=== PATIENT | female | born 1970 | race Caucasian/White ===

== ENCOUNTER 2017-08-09 13:24 | Emergency (ER) | payer BC ==
[~2017-08-09] VITALS: Ht 167.6 cm; Wt 76.2 kg
[~2017-08-09 13:24] MED LIST: CIPR500T4 PO; CLIN150 PO; LACTGRA PO
[2017-08-09 13:56] VITALS: BP 137/65; PULSE 75; RESP 18; TEMP 98.2; O2SAT 98
[2017-08-09] MEDS ORDERED: LEXA10TA PO (15:25)
[2017-08-09] MEDS ORDERED: PRED10 PO (15:33)
[2017-08-09] MEDS ORDERED: BACT800T5 PO (15:33)
[2017-08-09] MEDS ORDERED: BENZ100 PO (15:33)
--- NOTE | 2017-08-09 15:35 | PD ---
HPI Chief Complaint: Cold / Flu Symptoms Time Seen by Provider: 15:26 Travel History International Travel<30 days: No Contact w/Intl Traveler<30days: No Traveled to known affect area: No History of Present Illness HPI 46-year-old female presents emergency department for evaluation of cough, congestion, and sore throat 4 days. Says that her sore throat is burning and she feels as if her ears are full. Says she is used Tylenol and DayQuil without significant improvement. She denies fever chills although she says she has had some sweats. Her cough has been nonproductive. Says she has had some bloody nasal discharge when blowing her nose. She denies shortness of breath or chest pain. She has not been able to see her primary care physician as her office is closed over the holidays. [facility] Past Medical History Anxiety: Yes Cancer: No Cardiovascular Problems: No Endocrine: No Immune Disorder: No Kidney Stones: Yes Musculoskeletal: No Neurologic: No Psychiatric: No Reproductive: No Respiratory: No Influenza Vaccination: No ?: Not Past Surgical History Gynecologic Surgery: Yes (TUBAL LIGATION (1996)) Other Surgery: Yes (BREAST AUGMENTATION) Social History Alcohol Use: Yes () Tobacco Use: No Substance Use: No Allergies-Medications (Allergen,Severity, Reaction): Coded Allergies: meperidine (Unverified Adverse Reaction, Severe, Nausea, "feels funny" , ) Reported Meds & Prescriptions Reported Meds & Active Scripts Active Bactrim DS (Sulfamethoxazole-Trimethoprim) 800-160 Mg Tab 1 Tab PO BID Tessalon Perles (Benzonatate) 100 Mg Cap 100 Mg PO TID PRN 5 Days Prednisone 10 Mg Tab 10 Mg PO DAILY 7 Days Reported Lexapro (Escitalopram Oxalate) 10 Mg Tab 10 Mg PO DAILY Review of Systems Except as stated in HPI: all other systems reviewed are Neg Physical Exam Narrative GENERAL: Well-developed well-nourished no apparent distress SKIN: Focused skin assessment warm/dry. HEAD: Atraumatic. Normocephalic. EYES: Pupils equal and round. No scleral icterus. No injection or drainage. ENT: No nasal bleeding or discharge. Mucous membranes pink and moist. NECK: Trachea midline. No JVD. No lymphadenopathy. No meningismus Tympanic membranes mild erythema R>L intact CARDIOVASCULAR: Regular rate and rhythm. No murmur appreciated. RESPIRATORY: No accessory muscle use. Clear to auscultation. Breath sounds equal bilaterally. No CVA tenderness MUSCULOSKELETAL: No obvious deformities. No clubbing. No cyanosis. No edema. NEUROLOGICAL: Awake and alert. No obvious cranial nerve deficits. Motor grossly within normal limits. Normal speech. PSYCHIATRIC: Appropriate mood and affect; insight and judgment normal. Data Data Last Documented VS Vital Signs Date Time Temp Pulse Resp B/P (MAP) Pulse Ox O2 Delivery O2 Flow Rate FiO2 08/09/17 13:56 98.2 75 18 137/65 (89) 98 Orders Orders Ed Discharge Order (08/09/17 15:43) MDM Medical Decision Making Medical Screen Exam Complete: Yes Emergency Medical Condition: Yes Differential Diagnosis influenza, URI, pneumonia, bronchitis, pneumonitis, bronchospasm, allergic rhinitis, allergic pharyngitis Narrative Course 46-year-old female presents emergency department for evaluation of cough, congestion, and sore throat 4 days. Says that her sore throat is burning and she feels as if her ears are full. Says she is used Tylenol and DayQuil without significant improvement. She denies fever chills although she says she has had some sweats. Her cough has been nonproductive. Says she has had some bloody nasal discharge when blowing her nose. She denies shortness of breath or chest pain. She has not been able to see her primary care physician as her office is closed over the holidays. Vital signs are stable. Physical exam findings consistent with pharyngitis allergic versus viral. Mild tenderness palpation of the paraspinous area. No obvious nasal discharge or exudate. Patient will be discharged prednisone and Tessalon Perles. Bactrim prescribed but advised not to take this medication for 2 days and only to take if her symptoms worsen. She states understanding and will comply. Diagnosis Primary Impression: Sinusitis Qualified Codes: J32.0 - Chronic maxillary sinusitis Additional Impression: Pharyngitis Qualified Codes: J02.9 - Acute pharyngitis, unspecified Referrals: Primary Care Physician Departure Forms: Tests/Procedures, Work Release Enter return to work date: August 11, 2017 Additional Instructions: DO NOT start Bactrim unless the prednisone does not reduce yours symptoms in 2 days. Take all medications as prescribed and as discussed. I do not believe you have a bacterial infection at this point. You may use a drop of honey and lemon in a cup of warm water to soothe your cough. (If you are greater than 1 year old ) Ensure good hydration and a nutritious diet. Note that viral infection symptoms may last for several weeks if you have a viral illness. Follow up with your primary physician within 2-3 days. Return to the ED for worsening or persistent symptoms. Scripts Sulfamethoxazole-Trimethoprim (Bactrim DS) 800-160 Mg Tab 1 TAB PO BID for Infection, #14 TAB 0 Refills Prov: Shawna Black MD 08/09/17 Benzonatate (Tessalon Perles) 100 Mg Cap 100 MG PO TID Y for COUGH for 5 Days, CAP 0 Refills Prov: Shawna Black MD 08/09/17 Prednisone (Prednisone) 10 Mg Tab 10 MG PO DAILY for 7 Days, #7 TAB 0 Refills Prov: Shawna Black MD 08/09/17 Disposition: 01 DISCHARGE HOME Condition: Stable Mita Lema August 09, 2017 15:35
== END 2017-08-09 15:55 | disposition home or self-care (01) ==
LOC: PHEFT 13:24
DX: J32.0 Chronic maxillary sinusitis (principal); F41.9 Anxiety disorder, unspecified; Z79.899 Other long term (current) drug therapy; Z88.8 Allergy status to other drugs, medicaments and biological substances
CPT/HCPCS: 99283